=== PATIENT | female | born 1980 | race African-American/Black ===

== ENCOUNTER 2017-11-25 06:05 | Observation (INO) | payer OTHER ==
[~2017-11-25] VITALS: Ht 152.4 cm; Wt 95.3 kg
--- NOTE | ~2017-11-25 | O ---
[facility] [place] [address] [place] [address] OPERATIVE REPORT Name: TIFF MARKS Room #: 428-P [facility] M..#: [id number] Admission: 11/25/17 Attend Phys: Jeramy Tineo MD, F Discharge: Date of : 82 Report #: [id number] THIS REPORT FOR: //name// CC: SAUL physician/PCP Jeramy Tineo DATE OF SERVICE: 11/25/2017 SURGEON: Jeramy Tineo MD CRAB BACKER: None. PREOPERATIVE DIAGNOSES: 1. Acute cholecystitis. 2. Class 2 obesity. POSTOPERATIVE DIAGNOSES: 1. Acute on chronic suppurative cholecystitis. 2. Class 2 obesity. PROCEDURE: 1. Laparoscopic cholecystectomy with intraoperative cholangiogram. 2. This is a modifier 22 operation based on the difficulty of the case. The operation itself took 3 times longer than the usual cholecystectomy. Her gallbladder was globally thickened and inflamed with numerous moderate sized stones within the gallbladder as well as acute on chronic inflammatory changes and purulence within the gallbladder. There were significant omental adhesions to the gallbladder with its associated wall thickening. Coupled with her body habitus, this made the operation quite difficult. ANESTHESIA: General endotracheal anesthesia and local anesthetic. ESTIMATED BLOOD LOSS: 10 mL. SPECIMEN: Gallbladder. COMPLICATIONS: None appreciated. INDICATIONS FOR PROCEDURE: This is a 36-year-old female patient who was seen in the [place] [facility] with constant right upper quadrant abdominal pain that began just before midnight last night. She has had associated nausea, vomiting and chills. Her pain persisted throughout the night and despite this, she tried to go to work. After arriving there, she had worsening of her pain, which prompted her visit to the [place] [facility] earlier this morning. CT of the abdomen and pelvis showed multiple gallstones and pericholecystic stranding. This was confirmed with an ultrasound. The patient presents now for [facility] [address] [place] [address] OPERATIVE REPORT Name: TIFF MARKS Room #: 428-P [facility].#: [id number] Admission: 11/25/17 Attend Phys: Jeramy Tineo MD, F Discharge: Date of : 82 Report #: [id number] laparoscopic cholecystectomy with cholangiogram. OPERATIVE FINDINGS: Upon entrance in the abdominal cavity, the liver was enlarged. The gallbladder was acutely inflamed as omental adhesions to the gallbladder were present. There were also some chronic adhesions. After taking down the more chronic adhesions, the acute adhesions were present within the gallbladder wall and liver bed, which made the plane of dissection difficult. After difficult dissection to identify the cystic artery and cystic duct, the critical view consisting of the cystic artery, cystic duct, and lower edge of the gallbladder forming a window through which the liver was visible was seen. After clipping and dividing the cystic duct, the Hemoclips were barely large enough to cross the cystic duct. A single 0 PDS Endoloop was necessary to ensure closure of the cystic duct. Two clips remained on the cystic duct stump. The cystic artery was hemostatic. After removal of the gallbladder from the abdominal cavity, it was opened on the back table where numerous moderate sized mixed gallstones were present within the gallbladder. Upon entrance back into the abdominal cavity, the liver bed was made hemostatic with electrocautery. There was good hemostasis thereafter. The Hemoclips were secured. No other significant intra-abdominal pathology was seen. DESCRIPTION OF PROCEDURE IN DETAIL: After the risks, benefits, and expectations of the operation were discussed in detail with the patient, informed consent was obtained. The patient was identified in preoperative holding area. She was given IV antibiotics as documented in the chart in line with SCIP metrics. The patient was then taken to the operating room. She was placed in the supine position. SCDs were placed on the patient's bilateral lower extremities and pneumatic compression was initiated. The patient was then given IV sedation. She was intubated without incident. Her abdomen was prepped and draped in the standard sterile fashion. A time-out was performed to identify correct patient and procedure. Local anesthetic was infiltrated into the skin and subcutaneous tissue supraumbilically where a curvilinear incision was made with a #15 blade scalpel. An 11 mm Visiport was placed intraperitoneally with a 0-degree angled laparoscope. Pneumoperitoneum was achieved with insufflation of carbon dioxide to 15 mmHg. A 30-degree angled laparoscope was inserted. A subxiphoid 5 mm and right subcostal 5 mm ports x 2 were placed under direct visualization after local anesthetic was infiltrated into the skin and subcutaneous tissue and appropriately sized incisions were made. Operative findings are as noted above. The patient was placed in the reverse Trendelenburg position, rotated to her left. The dome of the gallbladder was retracted in a cephalad direction. The chronic omental adhesions to the gallbladder were carefully taken down with the ultrasound dissection. The dissection was carried down to the gallbladder wall, which appeared to be more thickened and acutely inflamed. The dome of the gallbladder was retracted in cephalad direction. The gallbladder peritoneum was [facility] [address] [place] [address] OPERATIVE REPORT Name: TIFF MARKS Room #: 428-P [facility]#: [id number] Admission: 11/25/17 Attend Phys: Jeramy Tineo MD, F Discharge: Date of : 82 Report #: [id number] then scored medially and laterally with the ultrasonic dissector. Dissection was carried out around this cystic artery and cystic duct to identify the critical view of safety as described above. The cystic duct was then clipped at its junction with the neck of the gallbladder. A ductotomy was created and the cholangiocatheter was inserted. This was held in place with Hemoclips. A cholangiogram was then performed with findings as noted above. The securing Hemoclip was then removed and the cholangiocatheter was pulled out of the cystic duct. The cystic duct was then doubly clipped and divided with the ultrasound dissector with a good seal. To ensure complete closure of the widened cystic duct, an 0 PDS Endoloop was placed around the cystic duct with appropriate traction. The cystic artery was then divided with the ultrasonic dissector with good hemostasis. The gallbladder was dissected out of the liver bed. While doing so, a small opening in the gallbladder was created due to a lack of good plane between the gallbladder and liver bed as a result of the acute inflammation. Purulent bile was present. This was readily suctioned and relatively contained. Dissection continued until the gallbladder was able to be detached from the liver bed. The gallbladder was placed in an Endopouch and removed through the supraumbilical port site fascial opening with moderate stretching of the fascia. Division of the fascia transversely on each side laterally was also necessary in order to create enough space to remove the inflamed gallbladder with all its gallstones. After doing so, the opening was felt to be too large to close laparoscopically. The abdominal cavity was reinflated and the liver bed was examined for hemostasis. Bleeding points were made hemostatic with electrocautery and the Hemoclips and Endoloop were secure. Primary closure of the defect was undertaken externally. [id number] 0 PDS sutures were placed x 2. The abdominal cavity was then completely desufflated and all ports were removed. Interrupted subcuticular 4-0 Monocryl sutures and Dermabond were used to close the skin incisions. The patient tolerated the procedure well. She was awakened, extubated, and taken to recovery room in stable condition with no apparent intraoperative complications. <ELECTRONICALLY SIGNED> By: Jeramy Tineo MD, FACS 11/25/17 2225 1500 1808 Jeramy Tineo MD, FACS /nt
--- NOTE | ~2017-11-25 | PATH ---
[facility] [address] [place] [address] PATHOLOGY RPT PROCEDURE Name: TIFF MARKS Room #: 428-P [facility] Francis M.RRachel#: [id number] Admission: 11/25/17 Date of : 82 Discharge: 11/26/17 Report #: [id number] Path Case #: [id number] [facility] Accession Number: [id number] . 01 Material submitted: . GALLBLADDER . 01 Clinical history: . Cholecystitis . 02 Diagnosis: Gallbladder, cholecystectomy: - Moderate acute and hemorrhagic cholecystitis. - Cholelithiasis. - Negative for malignancy. (IUV; 11/28/2017) QMS/11/28/2017 . 02 Electronically signed: . Cheli Ellington MD, Pathologist NPI- [id number] . 01 Gross description: . The specimen is received in formalin, labeled "Tiff Marks, gallbladder". Received is a previously opened gallbladder measuring 9.8 x 2.6 x 1.7 cm in greatest dimensions displaying pink-goff, shaggy serosal surfaces. Opening the gallbladder reveals a velvety and shaggy, pale carlos mucosa with the gallbladder wall thickness of 0.1 cm. Calculi are present displaying a light brown and multifaceted appearance, and no masses or lesions are noted grossly. Security Architect sections from the cystic neck, body, and fundus of the gallbladder are submitted in cassette A1. (CAA; 11/27/2017) QAC/QAC . 02 Pathologist provided ICD-10: K80.00 . 02 CPT . 826227 Performed at: [address], [place], [place] [id number] MD Andrey Pedersen MD Phone: [phone] Performed at: [address] [id number] MD Cheli Ellington MD Phone: [phone]
[2017-11-25 06:13] VITALS: BP 158/107
[2017-11-25 08:59] LABS: URINE BILIRUBIN NEGATIVE (Negative); URINE BLOOD NEGATIVE (Negative); URINE CLARITY CLOUDY; URINE COLOR YELLOW; URINE GLUCOSE-RANDOM* NEGATIVE (Negative); URINE KETONES NEGATIVE (Negative); URINE LEUKOCYTES-REFLEX NEGATIVE (Negative); URINE NITRITE-REFLEX NEGATIVE (Negative); URINE PROTEIN (DIPSTICK) NEGATIVE (Negative); URINE SPECIFIC GRAVITY 1.015 (1.005-1.035)
[2017-11-25 09:33] LABS: ABSOLUTE NEUTROPHILS 5.7 thou/uL (1.4-8.2); BASOPHILS 0.5 % (0.0-2.0); EOSINOPHILS 0.7 % (0.0-3.0); HEMOGLOBIN 12.9 gm/dL (12.0-15.0); LYMPHOCYTES 15.8 % (24.0-44.0); MCH 30.4 pg (26.0-34.0); MCHC 33.9 g/dL (28.0-37.0); MCV 89.7 fL (80.0-100.0); MONOCYTES 4.5 % (1.0-8.0); PLATELET COUNT 374 thou/uL (150-400); POLYS 78.5 % (36.0-66.0); RBC 4.23 mil/uL (4.20-5.00); RDW 12.8 % (10.5-14.5); WBC 7.3 thou/uL (4.0-11.0)
[2017-11-25 09:39] LABS: CALCIUM 8.4 mg/dL (8.5-10.1); CREATININE 0.8 mg/dL (0.6-1.0); POTASSIUM 3.9 mmol/L (3.5-5.1)
[2017-11-25 09:45] LABS: TOTAL BILIRUBIN 0.6 mg/dL (<0.1-1.0); TOTAL PROTEIN 7.6 g/dL (6.4-8.2)
[2017-11-25 09:51] LABS: ALBUMIN 3.8 g/dL (3.4-5.0)
[2017-11-25 11:51] VITALS: BP 142/95
[2017-11-25] MEDS ORDERED: SENNA-S TABLET1 EACH PO (14:31)
[2017-11-25] MEDS ORDERED: NORCO 5-325 TA1 EACH PO (14:31)
[2017-11-25 17:34] VITALS: BP 127/84
[2017-11-25 17:51] VITALS: BP 133/79
[2017-11-25 20:10] VITALS: BP 153/87
[2017-11-26 04:14] VITALS: BP 151/87
[2017-11-26 05:32] LABS: ABSOLUTE NEUTROPHILS 7.4 thou/uL (1.4-8.2); BASOPHILS 0.7 % (0.0-2.0); EOSINOPHILS 0.1 % (0.0-3.0); HEMATOCRIT 36.7 % (37.0-47.0); HEMOGLOBIN 12.4 gm/dL (12.0-15.0); LYMPHOCYTES 17.9 % (24.0-44.0); MCH 30.1 pg (26.0-34.0); MCHC 33.8 g/dL (28.0-37.0); MCV 89.2 fL (80.0-100.0); MONOCYTES 6.9 % (1.0-8.0); PLATELET COUNT 328 thou/uL (150-400); POLYS 74.4 % (36.0-66.0); RBC 4.12 mil/uL (4.20-5.00); RDW 12.6 % (10.5-14.5)
[2017-11-26 05:45] LABS: CALCIUM 8.4 mg/dL (8.5-10.1); POTASSIUM 3.8 mmol/L (3.5-5.1)
[2017-11-26 07:18] VITALS: BP 120/60
[2017-11-26 07:56] VITALS: BP 120/60
[2017-11-26] MEDS ORDERED: AUGMENTIN 875-1 EACH PO (10:51)
[2017-11-26] MEDS ORDERED: PERCOCET PO (10:51)
[2017-11-26 12:16] VITALS: BP 120/60
== END 2017-11-26 14:03 | disposition home or self-care (01) ==
LOC: ER 06:05 → EROBS 11:01 → 4E 16:41
PROVIDERS: Emergency Medicine; Surgery
DX: K81.0 Acute cholecystitis (principal); E66.01 Morbid (severe) obesity due to excess calories; Z68.41 Body mass index [BMI] 40.0-44.9, adult; F17.210 Nicotine dependence, cigarettes, uncomplicated
CPT/HCPCS: 50101; 50249; 50411; 50555; 50558; 50962; 51297; 51489; 51975; 52265; 52266; 53307; 54022; 54118; 55245; 55317; 56462; 56525; 56526; 62110; 62900; 70005

== ENCOUNTER → 2018-02-13 | Outpatient (CLI) | payer BC ==
[~2018-02-13] MED LIST: AUGMENTIN 875-1 EACH PO; NORCO 5-325 TA1 EACH PO; PERCOCET PO; SENNA-S TABLET1 EACH PO
--- NOTE | ~2018-02-13 | SLE ---
[facility] [address] [place] [address] POLYSOMNOGRAPHY STUDY Name: TIFF MARKS Room #: REG [facility]#: [id number] Admission: 02/13/18 Attend Phys: Dayron Tripathi MD Discharge: Date of : 82 Report #: [id number] THIS REPORT FOR: //name// CC: Dayron Tripathi [facility] physician/PCP Jeramy Tineo MD DATE OF SERVICE: 02/13/2018 SLEEP STUDY ATTENDING PHYSICIAN: Dr. Jeramy Tineo. The patient is a 37-year-old who weighs 235 pounds and is 60 inches tall with a BMI of 45.9. The patient's Eldridge score was 13. The patient underwent a diagnostic sleep study at [facility]. During the night study, the patient spent 428 minutes in bed and slept for 299 minutes with a sleep efficiency of 69.8%. Sleep latency was 36 minutes with a REM latency of 165 minutes. Overall, sleep architecture showed increased stage 1 and stage 2 sleep, absent slow wave and reduced REM sleep, which was 9% of the total sleep time. During the night of study, the patient had 2 obstructive apneas, no mixed or central apneas and 8 hypopneas. The patient's apnea-hypopnea index for the entire night was only 2 per hour, REM index of 8.7 per hour and a supine index of 2.6 per hour. EKG monitoring revealed an average heart rate of 73 beats per minute. It was an irregular rhythm during the later part of the night consistent with atrial fibrillation. Maximum heart rate was 102 beats per minute.Occasional PVC's seen. No clinically significant PLMS observed. Review of nocturnal oximetry study revealed an average oxygen saturation of 96% with a lowest of 90%. Due to low AHI, the patient did not meet the split night criteria for CPAP initiation. IMPRESSION: 1. No clinically significant sleep disordered breathing. The patient's AHI for the entire night was only 2 per hour. 2. No clinically significant periodic limb movements of sleep. 3. No clinically significant nocturnal hypoxia. [facility] [address] [address] POLYSOMNOGRAPHY STUDY Name: TIFF MARKS Room #: REG [facility]#: [id number] Admission: 02/13/18 Attend Phys: Dayron Tripathi MD Discharge: Date of : 82 Report #: [id number] 4. Abnormal EKG consistent with proxixmal atrial fibrillation. RECOMMENDATIONS: 1. The patient did not meet the split night criteria for CPAP initiation due to low AHI. 2. Weight loss is strongly advised. 3. Avoid DYE REEL OPERATOR depressants. 4. Caution regarding driving until patient's hypersomnia is resolved. 5. If clinical suspicion for narcolepsy or idiopathic hypersomnia is high, then consider doing multiple sleep latency tests. 6. Follow up with cardiology regarding abnormal EKG. <ELECTRONICALLY SIGNED> By: Dayron Tripathi MD 02/14/181919 1600 1620 Dayron Tripathi MD /lisa
== END ==
LOC: SLEEPLAB 11:06
DX: G47.30 Sleep apnea, unspecified (principal); E66.01 Morbid (severe) obesity due to excess calories; R94.31 Abnormal electrocardiogram [ECG] [EKG]

== ENCOUNTER → 2019-03-27 | Outpatient (CLI) | payer BC | LOC: RAD 16:06 | DX: M77.32 Calcaneal spur, left foot (principal); M25.561 Pain in right knee ==

== ENCOUNTER → 2019-05-21 | Outpatient (CLI) | payer BC | LOC: RAD 13:49 | DX: Z12.31 Encounter for screening mammogram for malignant neoplasm of breast (principal) ==

== ENCOUNTER 2020-04-07 00:16 | Emergency (ER) | payer BC ==
[~2020-04-07] VITALS: Ht 152.4 cm; Wt 82.6 kg
[2020-04-07] MEDS ORDERED: WOMEN'S DAILY1 EAC2 PO (00:31)
[2020-04-07] MEDS ORDERED: BARIATRIC MV-I1 EACH PO (00:31)
[2020-04-07 00:51] LABS: URINE BILIRUBIN 1+ (Negative); URINE BLOOD NEGATIVE (Negative); URINE CLARITY CLEAR; URINE COLOR YELLOW; URINE GLUCOSE-RANDOM* NEGATIVE (Negative); URINE KETONES 1+ (Negative); URINE NITRITE-REFLEX NEGATIVE (Negative); URINE PROTEIN (DIPSTICK) 1+ (Negative); URINE SPECIFIC GRAVITY >= 1.030 (1.005-1.035)
[2020-04-07 00:52] LABS: ICTOTEST (BILI CONFIRMATORY) Positive (Negative); URINE LEUKOCYTES-REFLEX 1+ (Negative)
[2020-04-07 01:00] LABS: CASTS None Seen /LPF (None Seen); MUCUS 0-3 Light strn/LPF (None Seen); SQUAMOUS >10 Many /LPF (0-3)
[2020-04-07 01:01] LABS: CRYSTALS None Seen /LPF (None Seen); TRANSITIONAL EPITHEL CELL >10 Many /LPF (None Seen); URINE RBC 0-2 Rare /HPF (0-2); URINE WBC-REFLEX >25 Many /HPF (0-5); WBC CLUMPS Few (None Seen)
[2020-04-07 01:51] LABS: HEMATOCRIT 33.5 % (37.0-47.0); HEMOGLOBIN 11.1 gm/dL (12.0-15.0); MCH 30.1 pg (26.0-34.0); MCHC 33.2 g/dL (28.0-37.0); MCV 90.6 fL (80.0-100.0); RBC 3.7 mil/uL (4.20-5.00); RDW 12.7 % (10.5-14.5); WBC 6.8 thou/uL (4.0-11.0)
[2020-04-07 01:55] LABS: CALCIUM 9.4 mg/dL (8.5-10.1); CREATININE 0.7 mg/dL (0.6-1.0); POTASSIUM 3.4 mmol/L (3.5-5.1)
[2020-04-07] MEDS ORDERED: MACROBID 100 M100 MG PO (03:04)
[2020-04-07] MEDS ORDERED: ENBRACE HR SOF1 EACH PO (03:07)
[2020-04-07 03:50] VITALS: BP 113/66
== END 2020-04-07 03:50 | disposition home or self-care (01) ==
LOC: ER 00:16
PROVIDERS: Emergency Medicine
DX: O20.0 Threatened abortion (principal); O23.91 Unspecified genitourinary tract infection in pregnancy, first trimester; O21.9 Vomiting of pregnancy, unspecified; O99.331 Smoking (tobacco) complicating pregnancy, first trimester; F17.210 Nicotine dependence, cigarettes, uncomplicated; Z3A.11 11 weeks gestation of pregnancy; Z98.84 Bariatric surgery status; Z90.49 Acquired absence of other specified parts of digestive tract; Z79.899 Other long term (current) drug therapy; Z88.6 Allergy status to analgesic agent